=== PATIENT | female | born 1940 | race African-American/Black ===

== ENCOUNTER 2017-03-07 02:42 | Inpatient (IN) | payer MEDICARE, OTHER ==
--- NOTE | ~2017-03-07 | DS ---
Discharge Summary [facility] [id number] [place]. [address] NAME: JED MCGRAW : 41 STATUS : DIS IN PAT#: [id number] AGE: 76 ADM/REG DATE : 03/07/17 MR#: [id number] REPORT SERV DATE: 03/11/17 DICTATED BY: ERICKSON ARREGUIN DATE: 03/10/17 REPORT STATUS : Draft TRANSCRIBED BY: MODDonna DATE: 03/10/17 ADMISSION DATE: 03/07/2017 DISCHARGE DATE: 03/10/2017 PROCEDURES DONE: 1. 03/07/2017 ultrasound of abdomen; cirrhosis and portal hypertension with splenomegaly and ascites. Gallstones with dilatation of the common bile duct, 16 mm in debris and the duct suspicious for choledocholithiasis. Medical renal disease. 2. 03/09/2017, Interventional Radiology, placement of Pleur-evac in the abdomen. No complications. CONSULT: Dr. Murray for Renal and Dr. Madsen for Hepatology. REASON FOR ADMISSION: Confusion and lethargy. HISTORY OF HOSPITAL STAY: A 76-year-old black female with past medical history of SYED with cirrhosis diagnosed two years ago by Dr. Jamel Madsen, esophageal varices secondary to SYED, ascites secondary to SYED, diabetes type 2, gout, hypothyroidism, GERD, ZAKIA, nephrolithiasis, Reyes's palsy, presenting with lethargy and confusion of unknown duration. The patient was admitted for further evaluation of the patient's confusion and lethargy. The patient was admitted because of hepatic encephalopathy. The patient started to have worsening hepatic encephalopathy secondary to SYED. Dr. Jamel Madsen was consulted, and discussion between the community outreach coordinator in the family revolved around continuing care with a worsening hepatorenal syndrome. The patient's creatinine increased to 7.80. The family is aware that the patient's SYED is driving the encephalopathy as well as worsening kidney function. Eventually, the family has agreed to go with [facility]. The patient was given Pleur-evac for tap of the ascites. Family was agreeable in the discharge plan as far as following up with [facility]. DISPOSITION: The patient feels fine, no complaints. ACTIVITIES: As tolerated. DIET: Regular. INSTRUCTIONS UPON DISCHARGE: The patient will be followed up by [facility]. MEDICATION UPON DISCHARGE: 1. Allopurinol 100 mg p.o. daily. 2. Coreg 25 mg p.o. daily. 3. Iron 325 p.o. daily. 4. Folic acid 1 mg p.o. daily. 5. Midodrine 5 mg p.o. t.i.d. 6. mg p.o. b.i.d. 7. Insulin 45 units subcu daily. 8. Lactulose 30 mL p.o. q.6. Discharge Summary [address] [address] NAME: JED MCGRAW : 41 STATUS : DIS IN PAT#: [id number] AGE: 76 ADM/REG DATE : 03/07/17 MR#: [id number] REPORT SERV DATE: 03/11/17 DICTATED BY: ERICKSON ARREGUIN DATE: 03/10/17 REPORT STATUS : Draft TRANSCRIBED BY: PERLITA DATE: 03/10/17 9. Synthroid 150 mg p.o. daily. 10.Levothyroxine 75 mg p.o. daily on Sunday and Sunday. 11.Prilosec 20 mg p.o. daily. 12.Ventolin 1 puff q.6 hours p.r.n. DIAGNOSES UPON DISCHARGE: 1. Confusion and lethargy secondary to hepatic encephalopathy. 2. Hepatic encephalopathy. 3. Hepatorenal syndrome secondary to nonalcoholic steatohepatitis. 4. Nonalcoholic steatohepatitis. 5. Diabetes. 6. Ascites secondary to nonalcoholic steatohepatitis. 7. Obstructive sleep apnea. 8. Pancytopenia. 9. Hypothyroidism. FBJ/AIMEEL Erickson Arreguin MD / [id number] CC: MD Ilia Cox
--- NOTE | ~2017-03-07 | HP ---
History And Physical [facility] [address] [place]. [address] NAME: JED MCGRAW : 41 STATUS : ADM IN PAT#: [id number] AGE: 76 ADM/REG DATE : 03/07/17 MR#: [id number] REPORT SERV DATE: 03/08/17 DICTATED BY: BENY HOOKER DATE: 03/07/17 REPORT STATUS : Draft TRANSCRIBED BY: MODL DATE: 03/07/17 DATE OF ADMISSION: 03/07/2017 CHIEF COMPLAINT: A 76-year-old female with history of cirrhosis, now presenting with confusion and lethargy. HISTORY OF PRESENTING ILLNESS: The patient's history was obtained through careful interview with the patient and two daughters coupled with review of [facility] medical records. The patient has had increasing lethargy and confusion for a few days, but it really became striking on the evening of admission. She did not even recognize her daughter and was disoriented to the family. They brought her to an outlying facility. Initial ammonia was reported at over 200. The patient was initiated on treatment, transferred to [facility] because her candy depositing machine operator, Dr. Jamel Madsen practices locally. The family has noticed that ascites has become an increasing problem over the last several months. She has had to be placed on a diuretic, but also has to have paracenteses about once a month. Her last paracentesis was about a week ago and the patient states that her abdomen has felt very good since that time, although she has had gradual increased swelling with fluid retention nonetheless. She has had lower extremity edema progressing over these last few weeks as well. No nausea or vomiting. No diarrhea. She denies any current abdominal pain. She claims her diabetes is under good control. There is no chest pain. No shortness of breath. No cough. No subjective fevers or chills. No lightheadedness. REVIEW OF SYSTEMS: Otherwise, a 14-point review of systems was obtained was negative. PAST MEDICAL HISTORY: 1. SYED cirrhosis diagnosed about two years ago followed by Dr. Jamel Madsen. 2. Esophageal varices seen by Dr. Satnam Zamora. 3. Ascites with a monthly paracentesis. 4. Diabetes. 5. Gout. 6. Hypothyroidism. 7. Gastroesophageal reflux disorder. 8. Obstructive sleep apnea, on CPAP. 9. Nephrolithiasis. 10.Chronic right-sided lymphedema since her right hip surgery. 11.Reyes's palsy. PAST SURGICAL HISTORY: 1. Right hip replacement. History And Physical [address] [address] NAME: JED MCGRAW : 41 STATUS : ADM IN [facility]#: [id number] AGE: 76 ADM/REG DATE : 03/07/17 MR#: [id number] REPORT SERV DATE: 03/08/17 DICTATED BY: BENY HOOKER DATE: 03/07/17 REPORT STATUS : Draft TRANSCRIBED BY: PERLITA DATE: 03/07/17 2. Hysterectomy. ALLERGIES: NO KNOWN DRUG ALLERGIES. SOCIAL HISTORY: Quit smoking about 18 years ago. No alcohol abuse. Lives in [place], [place]. She is . Her is in good health. She has a total of six children all of whom live within the region. FAMILY HISTORY: No family history of liver disease or abdominal diseases known. CURRENT MEDICATIONS: Include allopurinol 100 mg p.o. daily, Coreg 25 mg p.o. b.i.d., iron supplement, folic acid, Lantus 45 units subcutaneous daily, lactulose 45 mL p.o. b.i.d., Synthroid 150 mcg p.o. daily, Prilosec 20 mg p.o. daily, Demadex 20 mg p.o. daily. PHYSICAL EXAMINATION: VITAL SIGNS: Temperature 98.4, pulse 79, blood pressure 181/66, respiratory rate 18, and O2 saturation 100% on room air. GENERAL: A pleasant, cooperative female. She seems a bit lethargic, but currently, she is easily aroused to vocal stimuli and can carry on a conversation well. HEENT: Pupils equal, round, and reactive to light. No conjunctival pallor. No scleral icterus. Nares are patent. Oropharynx is clear of obstruction. Mildly dry mucous membranes. NECK: Trachea midline. No thyromegaly. LYMPH: No cervical lymphadenopathy. No supraclavicular lymphadenopathy. No inguinal lymphadenopathy. RESPIRATORY: Clear to auscultation at bases. No wheezes, no rales, no rhonchi. Normal respiratory effort. CARDIOVASCULAR: Regular rate and rhythm. No murmurs, rubs, or gallops. The patient does have chronic appearing right lower extremity edema out of proportion to the left. ABDOMEN: Somewhat distended, but I do not appreciate a fluid wave. It is not tight. Nontender throughout. No hepatosplenomegaly. DERMATOLOGICAL: Warm and dry. EXTREMITIES: No pallor. No cyanosis. PSYCHIATRIC: Normal affect. Very pleasant mood. She is lethargic, but she is arousable. She remembers that she is in the [place] and in a hospital, but she cannot recall the name of the hospital. She is unaware of what month or year it is. She does recognize her family and is aware of her current history and situation. LABORATORY DATA: White blood cell count 3.2, hemoglobin 6.6, hematocrit 19.5, platelets 70. Sodium 147, potassium 4.7, chloride 116, bicarb 18, BUN 92, creatinine 8.28, glucose 102, albumin 2.3, INR 1.7. Ammonia level 110. Liver enzymes within normal limits. ASSESSMENT AND PLAN: 1. Acute renal failure with hepatorenal syndrome. Obtain a nephrology consult. Provide supportive care. Hold diuretics. Try IV albumin. 2. Nonalcoholic steatohepatitis cirrhosis with MELD score of 26 or higher suggesting end- stage disease. Consult Dr. Jamel Madsen, candy depositing machine operator. History And Physical [address] [place]. [address] NAME: JED MCGRAW : 41 STATUS : ADM IN [facility]#: [id number] AGE: 76 ADM/REG DATE : 03/07/17 MR#: [id number] REPORT SERV DATE: 03/08/17 DICTATED BY: BENY HOOKER DATE: 03/07/17 REPORT STATUS : Draft TRANSCRIBED BY: PERLITA DATE: 03/07/17 3. Pancytopenia. We will transfuse blood. 4. Hepatic encephalopathy. Increase lactulose dose and monitor. 5. Diabetes. Sliding scale insulin. Continue basal insulin. Check hemoglobin A1c. 6. Obstructive sleep apnea, on CPAP. Although the patient's labs are strikingly bad, the patient is otherwise stable, so we will admit initially to a telemetry bed. MICK/PERLITA Beny Hooker M.D. / [id number] CC: MD WENDY Cox DAVID Chirag Patel, M.D. Sumeet Bhushan, M.D.
--- NOTE | ~2017-03-07 | CN ---
Consultation Report [facility] [address] [place]. [address] NAME: JED MCGRAW : 41 STATUS : ADM IN PAT#: [id number] AGE: 76 ADM/REG DATE : 03/07/17 MR#: [id number] REPORT SERV DATE: 03/07/17 DICTATED BY: NIMA HEADLEY DATE: 03/07/17 REPORT STATUS : Draft TRANSCRIBED BY: MODL DATE: 03/07/17 DATE OF CONSULTATION: REASON FOR CONSULTATION: Acute kidney injury. HISTORY OF PRESENT ILLNESS: This is a 76-year-old female patient who is admitted to [facility] to the Hospitalist Service from her home. The patient was apparently presented to [facility] Emergency Department late last evening with worsening and altered mentation. She has known late-stage cirrhosis and is followed by Dr. Jamel Madsen in the outpatient setting. We are consulted for evaluation for creatinine today that is at 8.28 with an unknown previous baseline. The patient is known to follow with Dr. Jamel Madsen chronically. I did discuss the patient this morning via telephone with her daughter who has just recently this morning exited to return home for errands. She states that the patient is followed chronically and has historically been deemed not a transplant candidate by her recollection, however, the patient's family member that I spoke with this morning states that she has not recently been taking her mother to her followup appointments and is unclear her current status in regard to her liver malfunction. Daughter states that over the last couple of days, the patient's mentation had worsened prompting evaluation here. She is admitted for reasons as above and evaluation is undertaken. The patient is lying awake and alert in the bed this morning. Her mentation at baseline seems sluggish, but remarkably intact for her elevated ammonia level. She denies current chest pain. No nausea, vomiting, or diarrhea. PAST MEDICAL HISTORY: Sparse on the information, however, gathered from previous evaluation by Hospitalist Services. The patient is unable to provide information and family is not present. History is positive for late-stage SYED, followed by Dr. Jamel Madsen. Calculated MELD score at 26, pancytopenia, hepatic encephalopathy, diabetes mellitus, obstructive sleep apnea, and anemia. REVIEW OF SYSTEMS: Unable to be completed with current situation regarding the patient's mental status as well as inability to discuss with her current family. ALLERGIES: SHE LISTS NO KNOWN ALLERGIES. ACTIVE MEDICATIONS: Include allopurinol 100 mg p.o. daily, Coreg 25 mg p.o. b.i.d., iron sulfate 325 mg p.o. daily, folic acid 1 mg p.o. daily, insulin Lantus subcu daily, lactulose 46 mL p.o. b.i.d., Synthroid 150 mcg p.o. daily, levothyroxine 75 mcg p.o. daily, Prilosec 20 mg p.o. daily, and Demadex 20 mg p.o. daily. SOCIAL HISTORY: Unable to evaluate due to the patient's current mental status as well as inability to discuss with her family. FAMILY HISTORY: Noncontributory and not reviewed during this consultation and dictation. Consultation Report [facility] [id number] [place]. [address] NAME: JED MCGRAW : 41 STATUS : ADM IN [facility]#: [id number] AGE: 76 ADM/REG DATE : 03/07/17 MR#: [id number] REPORT SERV DATE: 03/07/17 DICTATED BY: NIMA HEADLEY DATE: 03/07/17 REPORT STATUS : Draft TRANSCRIBED BY: PERLITA DATE: 03/07/17 PHYSICAL EXAMINATION: VITAL SIGNS: Blood pressure 103/57, temperature 96.4, respiratory rate 18. GENERAL: She is a chronically ill-appearing female patient, awake and alert. At baseline, somewhat confused, lying in bed this morning. HEENT: Normocephalic and atraumatic. Normal ocular movements. No scleral icterus. No conjunctival pallor is appreciated. NECK: Supple without thyromegaly. No JVD or mass. CHEST: Shows positive S1 and S2. No rubs or gallops. LUNGS: Diminished throughout. Normal expansion and effort bilaterally. No noted rhonchi or wheezes. GI: Shows a rounded abdomen, somewhat firm, unclear on examination if there is present ascites. : Deferred. She does have a Levy catheter to bedside drainage, which has minimal clear yellow urine. NEUROLOGIC: She is grossly intact. It appears despite her ammonia level of 110, somewhat forgetful, but able to appropriately interact and answer baseline questions. SKIN: Warm and dry and intact to visualized surfaces. No rash, lesions, or ecchymosis. PSYCHIATRIC: She appears to be of appropriate mood and affect. LABORATORY DATA: Pertinent laboratories and imaging to this evaluation: Ammonia level is at 110. Comprehensive metabolic panel: Sodium 147, potassium 4.7, chloride 116, CO2 of 18, BUN 92, creatinine 8.28, reflected GFR at 5 mL/minute, glucose of 102, calcium 8.5, total protein 6.7, albumin 2.3, globulin 4.4. ALT and AST are 13 and 18 respectively. Alkaline phos at 87. White blood cell count at 3.2, RBC 2.28, hemoglobin 6.6, hematocrit 19.5, platelets at 70. Urinalysis is clear yellow with no indications of infection or mucus or red or white blood cells. IMPRESSION AND PLAN: This is a 76-year-old female patient with nonalcoholic steatohepatitis, MELD score calculated at 26, late-stage nonalcoholic steatohepatitis, cirrhosis, now admitted for altered mentation with ammonia score of 110, pancytopenia, anemia, and acute renal failure. The patient has discussed this morning with her family in detail via telephone and advised that her current medical status is very poor. Considering her current medical status, this is likely hepatorenal syndrome manifesting with acute renal failure. According to the daughter who is on the telephone this morning, she states that the patient has historically not been considered a transplantation candidate and is advised this morning that her mother is not a viable dialysis candidate considering her multiple comorbidities. Current status would suggest the patient's most advantageous medical course at this point would be to consider palliative versus hospice care. Current medical therapy will be undertaken with addition of midodrine 5 mg p.o. t.i.d., Sandostatin subcu t.i.d., albumin 25 mg IV q.6, change her fluids to quarter normal saline, 2 amps of bicarb. Would hold her heparin considering her glucoses, which are at baseline somewhat low. Would hold dosing of Levemir and defer further dosing to Hospitalist Service who will evaluate the patient this morning. Dr. Jamel Madsen will evaluate the patient. The daughter via telephone this morning advises that she would discuss with family and would like to have a family discussion this afternoon regarding her mother's current medical situation as well as Consultation Report [facility] [address] [address] NAME: JED MGCRAW : 41 STATUS : ADM IN PAT#: [id number] AGE: 76 ADM/REG DATE : 03/07/17 MR#: [id number] REPORT SERV DATE: 03/07/17 DICTATED BY: NIMA HEADLEY DATE: 03/07/17 REPORT STATUS : Draft TRANSCRIBED BY: MODL DATE: 03/07/17 direction of her care. We will closely monitor the patient with you, monitor her I's and O's and laboratories daily. Further modification of treatment plan may be made based on clinical presentation of the patient's laboratory results and further consultation with renal attending. We appreciate consultation. We are glad to follow with you. DICTATED BY: Hudson Adkins NP JR/PERLITA Nima Headley M.D. / [id number] CC: Erickson Marie MD UNKNOWN
[~2017-03-07 02:42] MED LIST: COREG25 PO; DEMA20 PO; FERROUS SULF325 M1 PO; FOLIC PO; LANTUS SC; PRILO PO; SYN.15 PO; TRAVATAN OPH; Z100 PO; ZANTAC150 MG PO
[2017-03-07] MEDS ORDERED: LEVOTHYROXIN75 MCG PO (02:59)
[2017-03-07] MEDS ORDERED: CONSTULOSE PO (03:03)
[2017-03-07 03:59] LABS: BASOPHILS 0.6 %; BASOPHILS ABSOLUTE 0.02 10/3/uL (0.0-0.16); EOSINOPHILS 5.1 %; EOSINOPHILS ABSOLUTE 0.16 10/3/uL (0.0-0.53); IMMATURE GRANULOCYTES 0.3 %; IMMATURE GRANULOCYTES ABSOLUTE 0.01 10/3/uL (0.0-0.11); LYMPHOCYTES 14.3 %; LYMPHOCYTES ABSOLUTE 0.45 10/3/uL (0.67-4.30); MEAN CORPUS HGB CONC 33.8 g/dL (32.0-36.0); MEAN CORPUSCULAR HEMOGLOB 28.9 pg (26.0-34.0); MEAN CORPUSCULAR VOLUME 85.5 fL (80-100); MEAN PLATELET VOLUME 9.6 fL (9.2-13.0); MONOCYTES 6.3 %; NEUTROPHILS 73.4 %; NEUTROPHILS ABSOLUTE 2.31 10/3/uL (2.02-8.40); PLATELET COUNT 70 10/3/uL (150-400); RBC DISTRIBUTION WIDTH 15.9 % (12.0-16.0); RED CELL COUNT 2.28 10/6/uL (4.0-5.6); WHITE BLOOD CELLS 3.2 10/3/uL (4.5-10.5)
[2017-03-07 04:00] LABS: HEMATOCRIT 19.5 % (36.0-48.0); HEMOGLOBIN 6.6 g/dL (12.0-16.0)
[2017-03-07 04:02] LABS: MANUAL DIFF NO %
[2017-03-07 04:14] LABS: INTERNATIONAL NORMAL RATI 1.7 UNITS (-); PARTIAL THROMBO TIME 42.2 SEC (22.5-37.2); PROTIME (NOT ORD) 19.9 SEC (12.0-14.5)
[2017-03-07 04:17] LABS: A/G RATIO 0.5 (0.7-1.9); ALBUMIN 2.3 G/DL (3.5-5.0); ALKALINE PHOSPHATASE 87 U/L (45-117); BUN (BLOOD UREA NITROGEN) 92 MG/DL (6-23); CALCIUM, SERUM 8.5 MG/DL (8.5-10.4); CHLORIDE, SERUM 116 MMOL/L (96-112); CO2 (CARBON DIOXIDE) 18 MMOL/L (24-34); CREATININE 8.28 MG/DL (0.55-1.02); GFR AFRICAN AMERICAN 5 ML/MIN (>=60); GFR NON AFRICAN AMERICAN 4 ML/MIN (>=60); GLOBULIN 4.4 G/DL (2.5-4.1); GLUCOSE, SERUM 102 MG/DL (60-99); POTASSIUM, SERUM 4.7 MMOL/L (3.5-5.3); SGOT(AST) 18 U/L (5-40); SGPT(ALT) 13 U/L (5-65); SODIUM, SERUM 147 MMOL/L (135-148); TOTAL BILIRUBIN 0.6 MG/DL (0-1.2); TOTAL PROTEIN 6.7 G/DL (6.0-8.5)
[2017-03-07 04:36] LABS: PLATELET ESTIMATE DEC (ADEQUATE); RBC MORPHOLOGY NORM (NORMAL)
[2017-03-07 04:57] LABS: ASCORBIC ACID (UR NOT ORDER) NEG (NEG); BILIRUBIN, URINE NEGATIVE (NEG); KETONE, URINE NEGATIVE (NEG); LEUKOCYTE ESTERASE(NOT OR NEG (NEG); WBC (NOT ORDERED) (RFLEX) 1 (0-5)
[2017-03-07 17:25] LABS: BASOPHILS ABSOLUTE 0.04 10/3/uL (0.0-0.16); EOSINOPHILS 4.6 %; EOSINOPHILS ABSOLUTE 0.18 10/3/uL (0.0-0.53); IMMATURE GRANULOCYTES 0.3 %; IMMATURE GRANULOCYTES ABSOLUTE 0.01 10/3/uL (0.0-0.11); LYMPHOCYTES 12.4 %; LYMPHOCYTES ABSOLUTE 0.49 10/3/uL (0.67-4.30); MEAN CORPUS HGB CONC 34.9 g/dL (32.0-36.0); MEAN CORPUSCULAR HEMOGLOB 29.7 pg (26.0-34.0); MEAN CORPUSCULAR VOLUME 85.1 fL (80-100); MEAN PLATELET VOLUME 9.2 fL (9.2-13.0); MONOCYTES 6.8 %; MONOCYTES ABSOLUTE 0.27 10/3/uL (0.21-1.20); NEUTROPHILS 74.9 %; NEUTROPHILS ABSOLUTE 2.96 10/3/uL (2.02-8.40); PLATELET COUNT 60 10/3/uL (150-400); RBC DISTRIBUTION WIDTH 15.6 % (12.0-16.0); RED CELL COUNT 2.69 10/6/uL (4.0-5.6)
[2017-03-07 17:27] LABS: HEMATOCRIT 22.9 % (36.0-48.0); MANUAL DIFF NO %
[2017-03-07 17:32] LABS: INTERNATIONAL NORMAL RATI 1.8 UNITS (-)
[2017-03-07 18:27] LABS: ALKALINE PHOSPHATASE 77 U/L (45-117); BUN (BLOOD UREA NITROGEN) 92 MG/DL (6-23); CALCIUM, SERUM 8.9 MG/DL (8.5-10.4); CHLORIDE, SERUM 115 MMOL/L (96-112); GLUCOSE, SERUM 85 MG/DL (60-99); POTASSIUM, SERUM 4.5 MMOL/L (3.5-5.3); SGOT(AST) 16 U/L (5-40); SGPT(ALT) 9 U/L (5-65); SODIUM, SERUM 146 MMOL/L (135-148); TOTAL PROTEIN 6.7 G/DL (6.0-8.5)
[2017-03-07 18:28] LABS: A/G RATIO 0.9 (0.7-1.9); ALBUMIN 3.2 G/DL (3.5-5.0); CO2 (CARBON DIOXIDE) 14 MMOL/L (24-34); CREATININE 7.66 MG/DL (0.55-1.02); GFR AFRICAN AMERICAN 5 ML/MIN (>=60); GFR NON AFRICAN AMERICAN 5 ML/MIN (>=60); GLOBULIN 3.5 G/DL (2.5-4.1)
[2017-03-08 06:34] LABS: BASOPHILS 0.7 %; BASOPHILS ABSOLUTE 0.02 10/3/uL (0.0-0.16); EOSINOPHILS 6.3 %; EOSINOPHILS ABSOLUTE 0.19 10/3/uL (0.0-0.53); HEMOGLOBIN 7.2 g/dL (12.0-16.0); LYMPHOCYTES 15.5 %; LYMPHOCYTES ABSOLUTE 0.47 10/3/uL (0.67-4.30); MEAN CORPUS HGB CONC 34.4 g/dL (32.0-36.0); MEAN CORPUSCULAR HEMOGLOB 29.1 pg (26.0-34.0); MEAN CORPUSCULAR VOLUME 84.6 fL (80-100); MEAN PLATELET VOLUME 9.5 fL (9.2-13.0); MONOCYTES 5.9 %; MONOCYTES ABSOLUTE 0.18 10/3/uL (0.21-1.20); NEUTROPHILS 71.6 %; NEUTROPHILS ABSOLUTE 2.18 10/3/uL (2.02-8.40); PLATELET COUNT 54 10/3/uL (150-400); RBC DISTRIBUTION WIDTH 15.4 % (12.0-16.0); RED CELL COUNT 2.47 10/6/uL (4.0-5.6)
[2017-03-08 06:37] LABS: INTERNATIONAL NORMAL RATI 1.9 UNITS (-); PROTIME (NOT ORD) 21.5 SEC (12.0-14.5)
[2017-03-08 06:40] LABS: HEMATOCRIT 20.9 % (36.0-48.0)
[2017-03-08 06:41] LABS: MANUAL DIFF NO %
[2017-03-08 06:56] LABS: ALBUMIN 3.2 G/DL (3.5-5.0); ALKALINE PHOSPHATASE 69 U/L (45-117); CALCIUM, SERUM 8.4 MG/DL (8.5-10.4); CHLORIDE, SERUM 110 MMOL/L (96-112); CREATININE 7.78 MG/DL (0.55-1.02); GFR AFRICAN AMERICAN 5 ML/MIN (>=60); GFR NON AFRICAN AMERICAN 5 ML/MIN (>=60); GLOBULIN 3.2 G/DL (2.5-4.1); GLUCOSE, SERUM 81 MG/DL (60-99); POTASSIUM, SERUM 4.1 MMOL/L (3.5-5.3); SGOT(AST) 18 U/L (5-40); SGPT(ALT) 11 U/L (5-65); SODIUM, SERUM 142 MMOL/L (135-148); TOTAL PROTEIN 6.4 G/DL (6.0-8.5)
[2017-03-08 06:58] LABS: BUN (BLOOD UREA NITROGEN) 87 MG/DL (6-23); CO2 (CARBON DIOXIDE) 18 MMOL/L (24-34); TOTAL BILIRUBIN 1.5 MG/DL (0-1.2)
[2017-03-08 08:02] LABS: PLATELET ESTIMATE DEC (ADEQUATE)
[2017-03-09 05:15] LABS: BASOPHILS 0.7 %; BASOPHILS ABSOLUTE 0.03 10/3/uL (0.0-0.16); EOSINOPHILS 6.1 %; EOSINOPHILS ABSOLUTE 0.27 10/3/uL (0.0-0.53); HEMOGLOBIN 7.1 g/dL (12.0-16.0); IMMATURE GRANULOCYTES 0.2 %; IMMATURE GRANULOCYTES ABSOLUTE 0.01 10/3/uL (0.0-0.11); LYMPHOCYTES 17.8 %; LYMPHOCYTES ABSOLUTE 0.79 10/3/uL (0.67-4.30); MEAN CORPUS HGB CONC 34.5 g/dL (32.0-36.0); MEAN CORPUSCULAR HEMOGLOB 29.3 pg (26.0-34.0); MEAN CORPUSCULAR VOLUME 85.1 fL (80-100); MEAN PLATELET VOLUME 10.8 fL (9.2-13.0); MONOCYTES 10.4 %; MONOCYTES ABSOLUTE 0.46 10/3/uL (0.21-1.20); NEUTROPHILS 64.8 %; NEUTROPHILS ABSOLUTE 2.87 10/3/uL (2.02-8.40); PLATELET COUNT 69 10/3/uL (150-400); RBC DISTRIBUTION WIDTH 15.6 % (12.0-16.0); RED CELL COUNT 2.42 10/6/uL (4.0-5.6)
[2017-03-09 05:19] LABS: HEMATOCRIT 20.6 % (36.0-48.0); WHITE BLOOD CELLS 4.4 10/3/uL (4.5-10.5)
[2017-03-09 05:20] LABS: MANUAL DIFF NO %
[2017-03-09 05:26] LABS: ALBUMIN 2.8 G/DL (3.5-5.0); CALCIUM, SERUM 8.2 MG/DL (8.5-10.4); CHLORIDE, SERUM 110 MMOL/L (96-112); CO2 (CARBON DIOXIDE) 18 MMOL/L (24-34); GFR AFRICAN AMERICAN 5 ML/MIN (>=60); GFR NON AFRICAN AMERICAN 5 ML/MIN (>=60); PHOSPHORUS, SERUM 6.4 MG/DL (2.5-4.5); POTASSIUM, SERUM 3.7 MMOL/L (3.5-5.3); SODIUM, SERUM 142 MMOL/L (135-148)
[2017-03-09 05:49] LABS: BUN (BLOOD UREA NITROGEN) 83 MG/DL (6-23); GLUCOSE, SERUM 99 MG/DL (60-99)
[2017-03-09 07:41] LABS: PLATELET ESTIMATE DEC (ADEQUATE); RBC MORPHOLOGY NORM (NORMAL)
[2017-03-09] MEDS ORDERED: KLOR-CON M2020 MEQ PO (08:28)
[2017-03-09] MEDS ORDERED: DIOVAN HCT PO (08:28)
[2017-03-09] MEDS ORDERED: VENTOLIN HFA INH (08:29)
[2017-03-10] MEDS ORDERED: XIFAXAN550 MG PO (17:20)
[2017-03-10] MEDS ORDERED: PROAMAT5 PO (17:20)
[2017-03-10] MEDS ORDERED: [UNRECOGNIZED DRUG - REMARK] (17:24)
== END 2017-03-10 18:56 | disposition hospice, home (50) | DRG 441 ==
LOC: 7NO 02:42
PROVIDERS: Hospitalist; Internal Medicine Nephrology; Registered Nurse
PROC: 0W9930Z Drainage of Right Pleural Cavity with Drainage Device, Percutaneous Approach (ICD-10-PCS; principal; 2017-03-09)
DX: K76.7 Hepatorenal syndrome (principal); K72.00 Acute and subacute hepatic failure without coma; N17.9 Acute kidney failure, unspecified; D61.818 Other pancytopenia; K75.81 Nonalcoholic steatohepatitis (NASH); E11.9 Type 2 diabetes mellitus without complications; G47.33 Obstructive sleep apnea (adult) (pediatric); M10.9 Gout, unspecified; E03.9 Hypothyroidism, unspecified; K21.9 Gastro-esophageal reflux disease without esophagitis; Z96.641 Presence of right artificial hip joint; Z87.891 Personal history of nicotine dependence
CPT/HCPCS: 36415; 49418; 76700; 80053; 80069; 81001; 82140; 82962; 83735; 85025; 85610; 85730; 86850; 86900; 86901; 86920; 99152; 99153; A9270-GY; C1729; C1769; J2250; J3010; J3475; P9016; P9035; P9047; P9059; Q9967

== ENCOUNTER 2017-03-23 10:27 | Inpatient (IN) | payer MEDICARE, OTHER ==
--- NOTE | ~2017-03-23 | HP ---
History And Physical [facility] [address] [place]. [address] NAME: JED MCGRAW : 41 STATUS : ADM IN [facility]#: [id number] AGE: 76 ADM/REG DATE : 03/23/17 MR#: [id number] REPORT SERV DATE: 03/23/17 DICTATED BY: Gio FLOWER DATE: 03/23/17 REPORT STATUS : Draft TRANSCRIBED BY: MODL DATE: 03/23/17 DATE OF ADMISSION: 03/23/2017 HISTORY OF PRESENT ILLNESS: 76-year-old female with end-stage liver disease and end-stage renal disease. Discharged from [facility] on 03/11/2017 home with [facility]. She was seen and evaluated in last admission by both Hepatology and Nephrology, and was deemed not a transplant or dialysis candidate. A PleurX peritoneal drain was placed for ongoing management of ascites since she was sent home with [facility] for Palliative Care. The family became uncomfortable with that arrangement, took back to the emergency room secondary to worsening lethargy and confusion, and she is now transferred from [facility] to [facility] for ongoing evaluation. PAST MEDICAL HISTORY: Includes end-stage liver disease secondary to SYED, end-stage renal disease, hypothyroidism, type 2 diabetes, and sleep apnea. FAMILY HISTORY: Positive for heart disease. REVIEW OF SYSTEMS: Limited secondary to the patient's dense encephalopathy. Family reports worsening confusion and lethargy, but no high fever. No shaking chills and no bleeding. Remainder of the 10-point review of systems is negative. SOCIAL HISTORY: Living currently with family under the care of [facility] as mentioned above. PHYSICAL EXAMINATION: GENERAL: This is a well-developed, chronically ill-appearing female patient, densely encephalopathic, but in no distress. VITAL SIGNS: Temp is 96.6, heart rate 65, respiration 13, and blood pressure 124/60. HEENT: Pupils are equal, round, and reactive to light. Extraocular muscles are intact. Oropharynx is clear. NECK: Without JVD or bruit. LUNGS: Clear anteriorly. Diminished in the bases. HEART: Regular without murmur. ABDOMEN: With tense ascites, right lower quadrant peritoneal drain noted. EXTREMITIES: +1 edema. SKIN: With a few ecchymotic areas on the upper extremities. JOINTS: Without synovitis or effusion. NEUROLOGIC: Cranial nerves are grossly intact. Motor exam is diminished globally without focal deficits. Sensation is unremarkable. No asterixis noted. GENITOURINARY: Significant for Levy catheter. RECTAL: Deferred. LABORATORY DATA: Available data: White count is 7.3, hemoglobin 7.4, hematocrit 22.0, and platelets 57. Sodium 132, potassium 5.1, chloride 101, bicarb 18, BUN 83, creatinine 9.8, History And Physical [address] [address] NAME: JED MCGRAW : 42 STATUS : ADM IN PAT#: [id number] AGE: 76 ADM/REG DATE : 03/23/17 MR#: [id number] REPORT SERV DATE: 03/23/17 DICTATED BY: Gio FLOWER DATE: 03/23/17 REPORT STATUS : Draft TRANSCRIBED BY: PERLITA DATE: 03/23/17 albumin 2.6, glucose 113, lactate is 2.0, and ammonia is 321. IMPRESSION: End-stage liver disease with advanced hepatorenal syndrome. Current manifestations include advanced kidney disease, chronic anemia with chronic thrombocytopenia, worsened hepatic encephalopathy, and known portal hypertension with esophageal varices previously banded. Given the patient's multiorgan failure, she is not a candidate for transplant, she is not a candidate for dialysis and as such she is not a candidate for resuscitation efforts. We will make her a DNR with two licensed physician and discuss treatment options with the family. At this point, we could potentially place an NG tube for administration of lactulose and rifaximin to get her ammonia level down to treat her encephalopathy; however, this does come with a risk of potential gastrointestinal bleeding with esophageal irritation from the tube. At the present time, the patient's family is comfortable with DNR status. They are discussing amongst themselves whether they believe the risk of an NG tube is worth the potential benefit of the medications. In the mean time, we will continue supportive efforts. Further recommendations pending ongoing input from the family. ERUM/PERLITA Gio Flower M.D. / [id number] CC: Blair Smith M.D.
--- NOTE | ~2017-03-23 | DS ---
Discharge Summary [facility] [address] [place]. [address] NAME: JED MCGRAW : 42 STATUS : DIS IN PAT#: [id number] AGE: 76 ADM/REG DATE : 03/23/17 MR#: [id number] REPORT SERV DATE: 03/26/17 DICTATED BY: JARROD AYALA DATE: 03/26/17 REPORT STATUS : Draft TRANSCRIBED BY: MODL DATE: 03/26/17 ADMISSION DATE: 03/23/2017 DISCHARGE DATE: 03/26/2017 HISTORY OF PRESENT ILLNESS: Ms. Mcgraw is an unfortunate 76-year-old female with end-stage liver disease, deemed not a candidate for liver transplant, and end-stage renal disease likely due to as a complication of liver disease, meeting criteria for hepatorenal syndrome, who was transferred from an outside hospital due to encephalopathy, requiring higher level of care. For further details, please refer to H and P dictated by Dr. Alexander on 03/23/2017. HOSPITAL COURSE: Upon presentation to the hospital, the patient was initially managed in the intermediate care unit and subsequently transferred to the ICU . While in intermediary care unit, the patient was made DNR and transferred to the floor. Status post being on the floor, the patient has remained hemodynamically stable and management has been comfort care measures only. I had several discussions with family, offered referral to hospice; however, family has refused this. Had extensive discussion with family today. I explained that from a medical standpoint, aggressive intervention at this point is medically futile; however, family still wants all aggressive measures to be taken. The end result of the conversation was that labs, at their request and insistence, labs will be checked today and if the patient requires transfusion, transfusion will be given. After that, the patient will be discharged home with home health as requested by the family. Plan has been discussed with family, and they are agreeable with this plan. Also, they would like the patient to be ruled out for urinary tract infection. DISCHARGE MEDICATIONS: All the patient's home medications were continued with no addition of medications in the hospital setting. The patient is on: 1. Glargine 45 to 70 units subcutaneous daily. 2. Lactulose 30 p.o. every six hours. 3. Synthroid 150 mcg p.o. on Sunday, Sunday, , Sunday, and Sunday in the morning. 4. Synthroid 75 mcg on Sunday and Sunday. 5. Omeprazole 20 mg p.o. daily. 6. Rifaximin 550 mg p.o. twice a day. 7. Midodrine 5 mg p.o. three times a day. 8. Allopurinol 100 mg p.o. daily. 9. Coreg 25 mg p.o. daily. 10. mg p.o. daily. 11.Albuterol two inhalation puffs. DISPOSITION: The patient will be discharged home with home health as requested by family. ACTIVITY: As tolerated. DIET: As tolerated. Discharge Summary [address] [address] NAME: JED MCGRAW : 42 STATUS : DIS IN PAT#: [id number] AGE: 76 ADM/REG DATE : 03/23/17 MR#: [id number] REPORT SERV DATE: 03/26/17 DICTATED BY: JARROD AYALA DATE: 03/26/17 REPORT STATUS : Draft TRANSCRIBED BY: PERLITA DATE: 03/26/17 Greater than 30 minutes was spent providing counseling, addressing goals of care, dictation of note, and coordinating of discharge and care. DICTATED BY: MD ADRIAN Hernandez/PERLITA Jarrod Ayala MD / [id number] CC: Delores Upton
[~2017-03-23 10:27] MED LIST changes: +CONSTULOSE PO; +DIOVAN HCT PO; +KLOR-CON M2020 MEQ PO; +LEVOTHYROXIN75 MCG PO; +PROAMAT5 PO; +VENTOLIN HFA INH; +XIFAXAN550 MG PO; +[UNRECOGNIZED DRUG - REMARK]
[2017-03-23] MEDS ORDERED: PRILO PO (20:53)
[2017-03-23] MEDS ORDERED: TESSALON200 MG PO (20:53)
[2017-03-23] MEDS ORDERED: Z100 PO (20:53)
[2017-03-23] MEDS ORDERED: LANTUSCART SC (20:54)
[2017-03-23] MEDS ORDERED: PROAMAT5 PO (20:54)
[2017-03-23] MEDS ORDERED: COREG25 PO (20:55)
[2017-03-23] MEDS ORDERED: SYN075 PO (20:55)
[2017-03-23] MEDS ORDERED: SYN.15 PO (20:55)
[2017-03-23] MEDS ORDERED: FOLIC PO (20:56)
[2017-03-23] MEDS ORDERED: VENTOLIN HFA INH (20:56)
[2017-03-23] MEDS ORDERED: CONSTULOSE (21:01)
[2017-03-23] MEDS ORDERED: XIFAXAN550 MG PO (21:02)
[2017-03-24 04:49] LABS: BASOPHILS 0.4 %; BASOPHILS ABSOLUTE 0.03 10/3/uL (0.0-0.16); EOSINOPHILS 3.9 %; EOSINOPHILS ABSOLUTE 0.32 10/3/uL (0.0-0.53); HEMATOCRIT 21.8 % (36.0-48.0); HEMOGLOBIN 7.4 g/dL (12.0-16.0); IMMATURE GRANULOCYTES 0.5 %; IMMATURE GRANULOCYTES ABSOLUTE 0.04 10/3/uL (0.0-0.11); LYMPHOCYTES 9.4 %; LYMPHOCYTES ABSOLUTE 0.77 10/3/uL (0.67-4.30); MEAN CORPUS HGB CONC 33.9 g/dL (32.0-36.0); MEAN CORPUSCULAR HEMOGLOB 28.4 pg (26.0-34.0); MEAN CORPUSCULAR VOLUME 83.5 fL (80-100); MEAN PLATELET VOLUME 9.9 fL (9.2-13.0); MONOCYTES ABSOLUTE 0.41 10/3/uL (0.21-1.20); NEUTROPHILS 80.8 %; NEUTROPHILS ABSOLUTE 6.64 10/3/uL (2.02-8.40); PLATELET COUNT 69 10/3/uL (150-400); RBC DISTRIBUTION WIDTH 15.8 % (12.0-16.0); RED CELL COUNT 2.61 10/6/uL (4.0-5.6)
[2017-03-24 04:51] LABS: MANUAL DIFF NO %; WHITE BLOOD CELLS 8.2 10/3/uL (4.5-10.5)
[2017-03-24 05:03] LABS: CALCIUM, SERUM 8.9 MG/DL (8.5-10.4); CHLORIDE, SERUM 110 MMOL/L (96-112); SODIUM, SERUM 138 MMOL/L (135-148)
[2017-03-24 05:04] LABS: BUN (BLOOD UREA NITROGEN) 91 MG/DL (6-23); CO2 (CARBON DIOXIDE) 13 MMOL/L (24-34); CREATININE 9.71 MG/DL (0.55-1.02); GFR AFRICAN AMERICAN 4 ML/MIN (>=60); GFR NON AFRICAN AMERICAN 4 ML/MIN (>=60); GLUCOSE, SERUM 69 MG/DL (60-99)
[2017-03-24 06:13] LABS: PLATELET ESTIMATE DEC (ADEQUATE); RBC MORPHOLOGY NORM (NORMAL)
[2017-03-26 12:22] LABS: BASOPHILS 0.4 %; BASOPHILS ABSOLUTE 0.04 10/3/uL (0.0-0.16); EOSINOPHILS 4.9 %; EOSINOPHILS ABSOLUTE 0.44 10/3/uL (0.0-0.53); HEMATOCRIT 21.4 % (36.0-48.0); HEMOGLOBIN 7.2 g/dL (12.0-16.0); IMMATURE GRANULOCYTES 0.3 %; IMMATURE GRANULOCYTES ABSOLUTE 0.03 10/3/uL (0.0-0.11); LYMPHOCYTES 12.6 %; LYMPHOCYTES ABSOLUTE 1.12 10/3/uL (0.67-4.30); MEAN CORPUS HGB CONC 33.6 g/dL (32.0-36.0); MEAN CORPUSCULAR HEMOGLOB 28.3 pg (26.0-34.0); MEAN CORPUSCULAR VOLUME 84.3 fL (80-100); MEAN PLATELET VOLUME 8.8 fL (9.2-13.0); MONOCYTES ABSOLUTE 0.53 10/3/uL (0.21-1.20); NEUTROPHILS 75.8 %; NEUTROPHILS ABSOLUTE 6.73 10/3/uL (2.02-8.40); PLATELET COUNT 65 10/3/uL (150-400); RED CELL COUNT 2.54 10/6/uL (4.0-5.6); WHITE BLOOD CELLS 8.9 10/3/uL (4.5-10.5)
[2017-03-26 12:24] LABS: MANUAL DIFF NO %
[2017-03-26 12:35] LABS: A/G RATIO 0.6 (0.7-1.9); ALBUMIN 2.4 G/DL (3.5-5.0); BUN (BLOOD UREA NITROGEN) 94 MG/DL (6-23); CALCIUM, SERUM 8.6 MG/DL (8.5-10.4); CHLORIDE, SERUM 109 MMOL/L (96-112); GLOBULIN 3.8 G/DL (2.5-4.1); POTASSIUM, SERUM 4.6 MMOL/L (3.5-5.3); SGOT(AST) 28 U/L (5-40); SGPT(ALT) 19 U/L (5-65); SODIUM, SERUM 138 MMOL/L (135-148); TOTAL PROTEIN 6.2 G/DL (6.0-8.5)
[2017-03-26 12:36] LABS: ALKALINE PHOSPHATASE 93 U/L (45-117); CO2 (CARBON DIOXIDE) 18 MMOL/L (24-34); GFR AFRICAN AMERICAN 4 ML/MIN (>=60); GFR NON AFRICAN AMERICAN 3 ML/MIN (>=60); GLUCOSE, SERUM 112 MG/DL (60-99); TOTAL BILIRUBIN 0.9 MG/DL (0-1.2)
[2017-03-26 12:45] LABS: PLATELET ESTIMATE DEC (ADEQUATE); RBC MORPHOLOGY NORM (NORMAL)
[2017-03-26 22:55] LABS: ASCORBIC ACID (UR NOT ORDER) NEG (NEG); BILIRUBIN, URINE NEGATIVE (NEG); KETONE, URINE NEGATIVE (NEG); LEUKOCYTE ESTERASE(NOT OR LARGE (NEG); WBC (NOT ORDERED) (RFLEX) 87 (0-5)
== END 2017-03-26 18:47 | disposition home or self-care (01) | DRG 441 ==
LOC: IMCU 10:27 → 5SO 17:44
PROVIDERS: Hospitalist; Internal Medicine
DX: K76.7 Hepatorenal syndrome (principal); N18.6 End stage renal disease; G93.41 Metabolic encephalopathy; Z66 Do not resuscitate; E11.22 Type 2 diabetes mellitus with diabetic chronic kidney disease; D69.6 Thrombocytopenia, unspecified; K72.90 Hepatic failure, unspecified without coma; K75.81 Nonalcoholic steatohepatitis (NASH); E03.9 Hypothyroidism, unspecified; G47.33 Obstructive sleep apnea (adult) (pediatric); Z82.49 Family history of ischemic heart disease and other diseases of the circulatory system; D63.1 Anemia in chronic kidney disease
CPT/HCPCS: 80048; 80053; 81001; 82140; 82962; 85025; 87077; 87086; 87186; 87641; A9270-GY; J1200